=== PATIENT | male | born 1990 | race Hispanic/Latino ===

== ENCOUNTER 2019-12-24 11:23 | Emergency (ER) | payer OTHER ==
[~2019-12-24] VITALS: Ht 175.3 cm; Wt 77.1 kg
[2019-12-24] MEDS ORDERED: ONDANSETRON ODT 4 MG TAB ONE (11:41)
[2019-12-24] MEDS ORDERED: HYDROXYZINE HCL 25 MG TABLET PO SCH (12:45)
== END 2019-12-24 12:53 ==
LOC: EDH 11:23 → EEVIPCON 11:23 → EDH 12:53
DX: F41.1 Generalized anxiety disorder (principal); R00.2 Palpitations; R11.0 Nausea; Z72.0 Tobacco use
CPT/HCPCS: 93005